=== PATIENT | female | born 1935 | race Caucasian/White ===

== ENCOUNTER 2020-03-02 13:25 | Outpatient (REF) | payer SELFPAY | END 2020-03-02 13:26 | disposition home or self-care (01) | LOC: HO.HAP 13:25 | PROVIDERS: PCP Internal Medicine; Referring Provider Internal Medicine; Visit Provider Internal Medicine | DX: Z46.1 Encounter for fitting and adjustment of hearing aid (principal) | CPT/HCPCS: V5299 ==

== ENCOUNTER 2020-08-05 14:51 | Outpatient (REF) | payer SELFPAY | END 2020-08-05 14:52 | disposition home or self-care (01) | LOC: HO.HAP 14:51 | PROVIDERS: Visit Provider Internal Medicine | DX: Z46.1 Encounter for fitting and adjustment of hearing aid (principal); H90.3 Sensorineural hearing loss, bilateral | CPT/HCPCS: 99499 ==

== ENCOUNTER 2020-09-30 11:24 | Outpatient (REF) | payer MEDICARE, SELFPAY ==
--- NOTE | 2020-09-30 13:38 | MHC.AU.MED ---
Medical Clearance for Hearing Instrumentation Date: 09/30/20 Patient Name: Patty Landers Date of : 1935 Primary Care Provider: Referring Provider: Amilcar Polanco MD We have seen your patient on 09/30/20 and have determined that they are a candidate for amplification (See accompanying report). Specifically, they would benefit from: Hearing aid use in the right ear There is a statute that addresses Medical Evaluation Requirements prior to fitting a patient with a hearing aid. According to [place] statute 265 CMR:6.03(1), (a) General. Except as provided in 265 CMR 6.03(1)(b), a shearing machine feeder shall not sell a hearing aid unless the prospective user has presented to the shearing machine feeder a written statement signed by a licensed physician that states that the patient's hearing loss has been medically evaluated and the patient may be considered a candidate for a hearing aid. The medical evaluation must have taken place within the preceding six months. Please note: Due to the [place] Statute referenced above, we cannot accept a signature other than that of a licensed physician. INSTALLER TECHNICIAN and PA signatures cannot be accepted. I am in agreement with the above recommendation. There is no medical contraindication for hearing instrumentation. Physician Signature Date Physician Name (Printed)
--- NOTE | 2020-10-02 09:07 | MHC.AU.AHA ---
Adult Audiological Evaluation Date of Visit: 09/30/20 Adult High School Instructor Used: Not Applicable Reason for Appointment: Audiologic re-evaluation due increasing hearing difficulties. 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 Her reports it is necessary for him to speak to Patty from a close distance and directly in front of her for any significant speech understanding. Was evaluated by Dr. Jose Campbell in 2019 and is not a candidate for a Cochlear Implant Previous Hearing Test Results: 10/16/2017 [facility] Right Ear - Severe to profound sensorineural hearing loss with 36% speech understanding Left Ear - Moderate to profound sensorineural heraing loss with 0% speech discrimination ability. Ear History: History of Ear Wax Buildup: Both Ears Medical History: Medical History: High Blood Pressure, Stroke Allergies: Sulfa and Augmentin Medication List: Amlodipine, Atorvastatin, Clopidogrel, Lisinopril, Oxybutynin CL, Sertraline, Spironolactone, Vitamin D Hearing Instrument History- Right Ear: Bottom Ironer: [employer] Model: Identify Q50-312 Serial Number: [id number] Battery Size: 312 Repair Warranty: 2014 Dispensed By: [facility] Date of Fittin10/23/2012 Hearing Instrument History- Left Ear: Bottom Ironer: None Otoscopy: Right Ear: Totally occluding cerumen removed prior to today's testing Left Ear: Partially occluded with cerumen Tympanometry: Tympanometry performed due to: History of middle ear dysfunction Right Ear: Normal Middle Ear System (Type A) Left Ear: Hypercompliant Middle Ear System (Type Ad) Hearing Evaluation: Transducer(s) Used: Insert Earphones Method: Conventional Audiometry Stimuli Used: Pure Tones Right Ear: Description of Hearing: Severe to profound sensorineural hearing loss Left Ear: Description of Hearing: Moderately-severe to profound sensorineural hearing loss Speech Recognition Threshold (SRT): Method Used: Monitored Live Voice Stimuli Used: Spondee Words Right Ear: 85 dB HL Left Ear: 65 dB HL Word Discrimination: Word Lists Used: NU-6 Right Ear: Recorded List - 10% at 100 dB HL Live Monitored Voice - 40% at 100 dB HL Left Ear: Recorded List - 0% at 95 dB HL Live Monitored Voice - 10% at 95 dB HL Comparison: Compared to most recent evaluation: 5-20 dB decrease with the right ear thresholds decreasing more than the left ear. Recommendations: Trial with new right ear amplification is recommended. Medical clearance from a physician is required before fitting. Hearing Aid Fitting will be scheduled when all materials arrive. Hearing aid maintenance performed today. A Certification Form for a CaptionCall Phone was e-mailed today. The company will contact the [employer] to obtain the appropriate style phone for her needs. Plan to demonstrate a PartnerMic to determine if this accessory may improve Patty's speech understanding to any degree. Audiological re-evaluation in one year. Diagnosis: Primary Diagnosis: H90.3 Bilateral Sensorineural Hearing Loss Services Performed: Comprehensive Audiological Evaluation (CPT 13323) Tympanometry (CPT 37351) Signature: Provider: Marco A Shane, CCC-A
== END 2020-09-30 11:25 | disposition home or self-care (01) ==
LOC: HO.SH 11:24
PROVIDERS: Visit Provider Internal Medicine
DX: H90.3 Sensorineural hearing loss, bilateral (principal)
CPT/HCPCS: 92557; 92567

== ENCOUNTER 2020-09-30 12:51 | Outpatient (REF) | payer SELFPAY ==
--- NOTE | 2020-10-02 10:32 | MHC.AU.HAS ---
Hearing Aid Evaluation Date of Visit: 09/30/20 Window Draper Used: Not Applicable Historical Information: Description of Hearing: Right - Severe to profound sensorineural hearing loss. Fcyf-Nbqbdxhnsy-liyuea to profound SNHL with No speech discrimination ability Current personal amplification information, if applicable: [place] [address] Summary: Patient is experiencing significant speech understanding difficulty and current hearing aid is 8 years old. Has used BTE style for loaners with a bit more success. Advise new right power DEEPTHI Rechargeable style aid be trialed due to degree of hearing loss and manipulation difficulties. Hearing Aid Prescription: Based on the individual?s shared listening needs, communication environments, dexterity, desire for connectivity, and personal preferences, the following prescription for amplification has been made: Right ear: Agile Business Analyst: [employer] Model: SEWORKSeo P 50-R Battery Size: Rechargeable Color: Silver Chang Food Taster: #1 UP Type of Mold: Canal Lock C-Shell Accessories/Assistive Technology Recommended: Will obtain DEMO PartnerMic from [employer] to try to determine if beneficial. If helpful, cost of PartnerMic for patient is $475.00 Plan of Care: Patient wishes to purchase hearing aids as prescribed Action Taken/Action Needed: Earmold Impressions Taken Medical Clearance to be requested from PCP/ENT Hearing Instrument Fitting to be scheduled when materials arrive Comments: Primary Diagnosis: H90.3 Bilateral Sensorineural Hearing Loss Signature: Provider: Marco A Shane, CCC-A
== END 2020-09-30 12:52 | disposition home or self-care (01) ==
LOC: HO.SH 12:51
PROVIDERS: Visit Provider Internal Medicine
DX: Z46.1 Encounter for fitting and adjustment of hearing aid (principal); H90.3 Sensorineural hearing loss, bilateral
CPT/HCPCS: 92591

== ENCOUNTER 2020-10-15 13:12 | Outpatient (REF) | payer SELFPAY | END 2020-10-15 13:13 | disposition home or self-care (01) | LOC: HO.HAP 13:12 | PROVIDERS: Visit Provider Internal Medicine | DX: Z46.1 Encounter for fitting and adjustment of hearing aid (principal); H90.3 Sensorineural hearing loss, bilateral | CPT/HCPCS: V5255 ==

== ENCOUNTER 2020-10-29 13:25 | Outpatient (REF) | payer SELFPAY ==
--- NOTE | 2020-10-29 15:14 | MHC.AU.FUR ---
Hearing Instrument Follow-Up Date of Visit: 10/29/20 Right Ear: Telephoto Installer: Phonak Model: Audeo P 50-R Serial Number: [id number] Repair Warranty: 01/10/2024 Loss and Damage Warranty: 01/10/2024 Battery Size: Rechargeable Color: Silver Chang Circular Shear Operator: #1 UP Type of Mold: Canal Lock C-Shell #[id number] warranty 02/10/2021 Type of Wax Guard: CERUSTOP Dispensed By: [facility] Date of Fittin10/23/2012 Follow-Up Summary: Patient reports no improvement in hearing with Audeo P aid compared to old Virto Q 50-312. Had significant difficulty with insertion and getting frustrated. Discussed trying high level of technolgy in the ITC style she is used to, possibly Coleman rechargeable. After considering options, patient wants to try Phonak Virto M 50-312. Patient returned the DEMO PartnerMic, will send the right Audeo P aid back for credit. Ordering Right Phonak Virto M 50-312 requesting to make exactly as her old Virto Q, making it Non-Wireless if it needs to be smaller to better match old aid. Recommendations (Other): Schedule HAF when Virto M 50-312 aid in. Diagnosis Code(s): Primary Diagnosis: H90.3 Bilateral Sensorineural Hearing Loss Services Performed: JAUREGUI Non-Quantity Charges: HANC: NonBillable Event Signature: Provider: Marco A Shane, [facility]
== END 2020-10-29 13:26 | disposition home or self-care (01) ==
LOC: HO.HAP 13:25
PROVIDERS: Visit Provider Internal Medicine
DX: Z13.89 Encounter for screening for other disorder (principal)

== ENCOUNTER 2021-11-24 09:51 | Outpatient (REF) | payer SELFPAY | END 2021-11-24 09:52 | disposition home or self-care (01) | LOC: HO.HAP 09:51 | PROVIDERS: Visit Provider Internal Medicine | DX: Z46.1 Encounter for fitting and adjustment of hearing aid (principal); H90.3 Sensorineural hearing loss, bilateral | CPT/HCPCS: 99499 ==

== ENCOUNTER 2022-02-03 15:03 | Outpatient (REF) | payer MEDICARE, SELFPAY | END 2022-02-03 15:04 | disposition home or self-care (01) | LOC: HO.SH 15:03 | PROVIDERS: Visit Provider Internal Medicine | DX: H90.3 Sensorineural hearing loss, bilateral (principal) | CPT/HCPCS: 92552; 92556; 92567 ==

== ENCOUNTER 2022-02-03 16:24 | Outpatient (REF) | payer SELFPAY ==
--- NOTE | 2022-02-04 07:30 | MHC.AU.HAS ---
Hearing Aid Evaluation Date of Visit: 02/03/22 Historical Information: Description of Hearing: Right ear - severe to profound sensorineural hearing loss with 56% speech discrimination Left ear - moderately-severe to profound sensorineural hearing loss with 20% speech understanding Current personal amplification information, if applicable: 2012 Right Phonak Virto Q 50-312 Summary: Patient is having signficantly increasing communication difficulties. There has been a change in her cognitive skills, particularly since her passed and she is now in a health care facility. Children would like to provider with as much hearing improvement as possible. As patient communicated better with the ear inserts, I believe her communication would improve with the use of an accessory microphone for the people speaking to her. Hearing Aid Prescription: Based on the individual?s shared listening needs, communication environments, dexterity, desire for connectivity, and personal preferences, the following prescription for amplification has been made: Right ear: Shank Stitcher: [employer] Model: Virto P 50-312 Battery Size: 312 Color: [place] Infantry Operations Specialist: Power Accessories/Assistive Technology Recommended: Partner Maldonado Action Taken/Action Needed: Comments: Her son is the power of utilities equipment repairer and signed hearing aid order paperwork and medical clearance waiver form. WHEN RECEIVED, GIVE AID TO AMEE TO PRE-PROGRAM AND FIND AN APPOINTMENT FOR JUDY Primary Diagnosis: H90.3 Bilateral Sensorineural Hearing Loss Secondary Diagnosis: H61.21 Impacted Cerumen, Right Ear Signature:Provider: Pranav Shane, [facility]
== END 2022-02-03 16:25 | disposition home or self-care (01) ==
LOC: HO.HAP 16:24
PROVIDERS: Visit Provider Internal Medicine
DX: Z46.1 Encounter for fitting and adjustment of hearing aid (principal); H90.3 Sensorineural hearing loss, bilateral; H61.21 Impacted cerumen, right ear
CPT/HCPCS: 92590; 92700

== ENCOUNTER 2022-03-04 12:36 | Outpatient (REF) | payer MEDICARE, SELFPAY | END 2022-03-04 12:37 | disposition home or self-care (01) | LOC: HO.HAP 12:36 | PROVIDERS: Visit Provider Internal Medicine | DX: Z46.1 Encounter for fitting and adjustment of hearing aid (principal); H90.3 Sensorineural hearing loss, bilateral | CPT/HCPCS: V5255; V5267; V5274 ==

== ENCOUNTER 2022-03-07 11:59 | Outpatient (REF) | payer SELFPAY | END 2022-03-07 12:00 | disposition home or self-care (01) | LOC: HO.HAP 11:59 | PROVIDERS: Visit Provider Internal Medicine | DX: Z13.89 Encounter for screening for other disorder (principal) ==

== ENCOUNTER 2022-03-25 10:30 | Outpatient (REF) | payer SELFPAY | END 2022-03-25 10:31 | disposition home or self-care (01) | LOC: HO.HAP 10:30 | PROVIDERS: Visit Provider Internal Medicine | DX: Z13.89 Encounter for screening for other disorder (principal) ==

== ENCOUNTER 2022-04-26 14:45 | Outpatient (REF) | payer SELFPAY ==
--- NOTE | 2022-04-27 09:29 | MHC.AU.HA3 ---
Hearing Instrument Follow-Up- Binaural Date of Visit: 04/26/22 Right Ear: Make, Model, Color, Serial Number: Vonda Sanchez [id number] Half Shell SN: [id number] Color: [place] Jointer Operator Repair Warranty: 05/08/2025 Jointer Operator Loss and Damage Warranty: 05/08/2025 [facility] Service Plan: OPTED OUT Battery Size: 312 Type of Wax Guard: CeruStop Dispensed By: [facility] Date of Fittin03/04/2022 Follow-Up Summary: Patty returned to pharmacy picking technician new remade hearing aid. Re-ran feedback condominium property manager. Both Patty and son noticed significant improvement in hearing compared to old hearing aid. Reviewed care and use including changing battery and wax guards. Practiced insertion and removal - Patty did well in office. Recommendations: Hearing instrument follow-up or maintenance as needed. Son will call if problems arise. Diagnosis Code(s): Primary Diagnosis: H90.3 Bilateral Sensorineural Hearing Loss Signature: Provider: Pranav Escalona, [facility]
== END 2022-04-26 14:46 | disposition home or self-care (01) ==
LOC: HO.HAP 14:45
PROVIDERS: Visit Provider Internal Medicine
DX: Z13.89 Encounter for screening for other disorder (principal)

== ENCOUNTER 2022-09-05 09:39 | Outpatient (REF) | payer SELFPAY | END 2022-09-05 09:40 | disposition home or self-care (01) | LOC: HO.HAP 09:39 | PROVIDERS: Visit Provider Internal Medicine | DX: Z13.89 Encounter for screening for other disorder (principal) ==

== ENCOUNTER 2022-09-22 13:00 | Outpatient (REF) | payer MEDICARE, MEDICAID, SELFPAY | END 2022-09-22 13:01 | disposition home or self-care (01) | LOC: HO.HAP 13:00 | PROVIDERS: Visit Provider Internal Medicine | DX: Z46.1 Encounter for fitting and adjustment of hearing aid (principal); H90.3 Sensorineural hearing loss, bilateral | CPT/HCPCS: V5014 ==